=== PATIENT | female | born 1945 | race Caucasian/White ===

== ENCOUNTER 2017-02-27 12:33 | Emergency (ER) | payer MEDICARE, OTHER ==
[2017-02-27] MEDS ORDERED: Aspirin 81 MG Tab.Chew PO ONE (13:42)
[2017-02-27] MEDS ORDERED: Metoprolol Succinate 25 MG Tab.ER PO ONE (13:47)
--- NOTE | 2017-02-27 13:53 | EDM.PDOC ---
[id number] 4d FACE IS DROop Time Seen by Provider: 02/27/17 13:19 Source of Information: Reports: Patient History Limitations: Reports: No Limitations - History of Present Illness INITIAL COMMENTS - FREE TEXT/NARRATIVE: 72 yo female presents with 4 days of nausea vomiting, weakness and dizziness. 2 days ago was most severe, nausea with 1 episode of emesis. Nausea was worse when she would stand up. Today late morning her daughter noticed a left sided mouth droop but she is able to raise for smile. She is feeling better today, remains very fatigue. Balance has improved but not returned to normal. Pt does not know how long her blood pressure has been elevated. She has not seen a doctor for 30 plus years. She denies headache, or hearing her blood pressure in her ears. She denies fever, chills, nasal congestion, sore throat, stiff neck, diarrhea or constipation. denies Pain Score (Numeric/FACES): 0 - Related Data Allergies Allergy/AdvReac Type Severity Reaction Status Date / Time No Known Allergies Allergy Verified 02/27/17 13:06 Home Meds: Home Meds Timolol [Betimol 0.5% Ophth Soln] 1 drop TOP DAILY 02/27/17 [History] Past Medical History HEENT History: Reports: Glaucoma Social & Family History - Tobacco Use Smoking Status *Q: Never Smoker - Recreational Drug Use Recreational Drug Use: No ED ROS GENERAL - Review of Systems Review Of Systems: See Below Constitutional: Reports: Fatigue. Denies: Fever, Chills HEENT: Denies: Sinus Problem Respiratory: Denies: Shortness of Breath, Wheezing Cardiovascular: Denies: Chest Pain ED EXAM, GENERAL - Physical Exam Exam: See Below Exam Limited By: No Limitations General Appearance: Alert, WD/WN, No Apparent Distress Ears: Normal External Exam, Normal Canal, Hearing Grossly Normal, Normal TMs Nose: Normal Inspection, Normal Mucosa Throat/Mouth: Normal Inspection, Normal Lips, Normal Teeth, Normal Gums, Normal Oropharynx, Normal Voice, No Airway Compromise. No: Dysphagia Head: Atraumatic, Normocephalic, Other (left mouth droop, normal sensation bilateral) Neck: Normal Inspection, Supple, Non-Tender, Full Range of Motion. No: Lymphadenopathy (R), Lymphadenopathy (L) Respiratory/Chest: No Respiratory Distress, Lungs Clear, Normal Breath Sounds, No Accessory Muscle Use, Chest Non-Tender. No: Crackles, Rhonchi, Wheezing Cardiovascular: Regular Rate, Rhythm, No Murmur GI/Abdominal: Normal Bowel Sounds, Soft, Non-Tender Back Exam: Normal Inspection, Full Range of Motion. No: CVA Tenderness (R), CVA Tenderness (L) Neurological: Alert, Oriented, CN II-XII Intact, Normal Cognition, Normal Gait, Normal Reflexes, No Motor/Sensory Deficits. No: Disoriented, Memory Loss Remote Events, Memory Loss Recent Events Psychiatric: Normal Affect, Normal Mood Skin Exam: Warm, Dry, Intact Course - Vital Signs Last Recorded V/S: Last Vital Signs Temp 36.3 C 02/27/17 12:59 Pulse 63 02/27/17 14:24 Resp 16 02/27/17 14:25 BP 170/95 H 02/27/17 14:25 Pulse Ox 98 02/27/17 14:25 - Orders/Labs/Meds Orders: Active Orders 24 hr Category Date Time Status EKG Documentation Completion [RC] ASDIRECTED Care 02/27/17 13:44 Active Head wo Cont [CT] Stat Exams 02/27/17 13:41 Taken EKG 12 Lead [EK] Urgent Ther 02/27/17 13:42 Ordered Labs: Laboratory Tests 02/27/17 02/27/17 Range/Units 13:50 13:50 WBC 9.9 (4.5-11.0) K/uL RBC 5.06 (3.30-5.50) M/uL Hgb 14.7 (12.0-15.0) g/dL Hct 43.5 (36.0-48.0) % MCV 86 (80-98) fL MCH 29 (27-31) pg MCHC 34 (32-36) % Plt Count 276 (150-400) K/uL Neut % (Auto) 71 H (36-66) % Lymph % (Auto) 23 L (24-44) % [place] % (Auto) 6 (2-6) % Eos % (Auto) 0 L (2-4) % Baso % (Auto) 0 (0-1) % Sodium 142 (140-148) mmol/L Potassium 3.6 (3.6-5.2) mmol/L Chloride 106 (100-108) mmol/L Carbon Dioxide 29 (21-32) mmol/L Anion Gap 6.6 (5.0-14.0) mmol/L BUN 19 H (7-18) mg/dL Creatinine 0.9 (0.6-1.0) mg/dL Est Cr Clr Drug Dosing 53.67 mL/min Estimated GFR (MDRD) > 60 (>60) Glucose 115 H (74-106) mg/dL Calcium 9.2 (8.5-10.1) mg/dL Total Bilirubin 0.4 (0.2-1.0) mg/dL AST 12 L (15-37) U/L ALT 18 (12-78) U/L Alkaline Phosphatase 62 (46-116) U/L Troponin I < 0.017 (0.000-0.056) ng/mL Total Protein 6.9 (6.4-8.2) g/dL Albumin 3.6 (3.4-5.0) g/dL Globulin 3.3 (2.3-3.5) g/dL Albumin/Globulin Ratio 1.1 L (1.2-2.2) Meds: Medications Discontinued Medications Generic Name Dose Route Start Last Admin Trade Name Freq PRN Reason Stop Dose Admin Aspirin 81 mg 02/27/17 13:42 02/27/17 14:23 Aspirin PO 02/27/17 13:43 81 mg ONETIME ONE Administration Metoprolol Succinate 25 mg 02/27/17 13:47 02/27/17 14:24 Toprol Xl PO 02/27/17 13:48 25 mg ONETIME ONE Administration - Radiology Interpretation Free Text/Narrative:: head CT very small possible ischemic area of unknown age please see report for details CT Results Date: 02/27/17 - Re-Assessments/Exams Free Text/Narrative Re-Assessment/Exam: 02/27/17 19:29 pt visiting area from [place]. Onset of dizziness 3 days ago. Case discussed with Officer. Neuro exam intact. detailed discussion with daughter and pt about findings and blood pressure control and need to follow-up. Will DC her on aspirin 81 mg daily and Lisinopril 20 mg daily. She will follow-up on return home next Tuesday and return to ER if develop stroke symptoms Departure - Departure Time of Disposition: 15:36 Disposition: Home, Self-Care 01 Condition: Good Clinical Impression: Left-sided Whitten's palsy Hypertension Qualifiers: Hypertension type: essential hypertension Qualified Code(s): I10 - Essential ( primary) hypertension - Discharge Information Instructions: Hypertension Referrals: PCP,None [Primary Care Provider] - Forms: ED Department Discharge Additional Instructions: I have sent with you your lab work and Head CT you need to follow-up as soon as you return home aspirin 81 mg daily start Lisinopril 20 mg daily if you develop headache, slurred speech, unilateral weakness or numbness you need to be seen in emergency room - My Orders Last 24 Hours: My Active Orders 02/27/17 13:41 Head wo Cont [CT] Stat 02/27/17 13:42 EKG 12 Lead [EK] Urgent 02/27/17 13:44 EKG Documentation Completion [RC] ASDIRECTED - Assessment/Plan Last 24 Hours: My Active Orders 02/27/17 13:41 Head wo Cont [CT] Stat 02/27/17 13:42 EKG 12 Lead [EK] Urgent 02/27/17 13:44 EKG Documentation Completion [RC] ASDIRECTED
[2017-02-27 14:26] VITALS: BP 170/95
== END 2017-02-27 16:02 | disposition home or self-care (01) ==
LOC: JP.ED 12:33
DX: G51.0 Bell's palsy (principal); I10 Essential (primary) hypertension; H40.9 Unspecified glaucoma; Z79.899 Other long term (current) drug therapy
CPT/HCPCS: 36415; 70450; 80053; 84484; 85025; 93005; 99285; A9270; 93010; 99284

== ENCOUNTER 2017-03-01 12:52 | Emergency (ER) | payer MEDICARE, OTHER ==
[2017-03-01] MEDS ORDERED: Sodium Chloride 0.9% 10 ML Syringe FLUSH PRN (14:16)
[2017-03-01] MEDS ORDERED: Lactated Ringers 1,000 ML IV ONE (14:16)
--- NOTE | 2017-03-01 14:22 | EDM.PDOC ---
ED HPI GENERAL MEDICAL PROBLEM - General Chief Complaint: General Stated Complaint: NOT GETTING BETTER Time Seen by Provider: 03/01/17 14:04 Source of Information: Reports: Patient, Family, Old Records, RN Notes Reviewed History Limitations: Reports: No Limitations - History of Present Illness INITIAL COMMENTS - FREE TEXT/NARRATIVE: 72-year-old female presents emergency department today with difficulty swallowing she was recently seen in the emergency department earlier this weekend diagnosis of Whitten's palsy she had a follow-up at one of the stroke centers underwent MRI which was negative those records are pending, her facial droop on the left side has progressed she now has minimal movement of that cheek and mouth she also has difficulty closing her left eye one of the new symptoms is that she has difficulty eating and drinking. She is currently on combination prednisone, Valtrex, artificial tears. She states because of the difficulty eating and drinking she feels very dehydrated and weak - Related Data Allergies Allergy/AdvReac Type Severity Reaction Status Date / Time No Known Allergies Allergy Verified 02/27/17 13:06 Home Meds: Home Meds Timolol [Betimol 0.5% Ophth Soln] 1 drop TOP DAILY 02/27/17 [History] Aspirin 81 mg PO DAILY 03/01/17 [History] Dextran 70/Hypromellose [Artificial Tears] 1 drop EYELF ASDIRECTED PRN 03/01/17 [History] Lisinopril 20 mg PO DAILY 03/01/17 [History] Prednisone [IMW: predniSONE] 60 mg PO DAILY 03/01/17 [History] valACYclovir [Valtrex] 1,000 mg PO TID 03/01/17 [History] Past Medical History HEENT History: Reports: Glaucoma [employer] History: Reports: Social & Family History - Family History Family Medical History: Noncontributory - Tobacco Use Smoking Status *Q: Never Smoker - Caffeine Use Caffeine Use: Reports: Coffee - Recreational Drug Use Recreational Drug Use: No ED ROS GENERAL - Review of Systems Review Of Systems: See Below Constitutional: Denies: Fever, Chills Respiratory: Reports: No Symptoms Cardiovascular: Reports: No Symptoms GI/Abdominal: Reports: Difficulty Swallowing : Reports: No Symptoms Musculoskeletal: Reports: No Symptoms Skin: Reports: No Symptoms Neurological: Reports: Other (Facial droop) ED EXAM, GENERAL - Physical Exam Exam: See Below Free Text/Narrative:: Power is 5 x 5 in upper and lower extremities there is no dysdiadochokinesis she has no difficulty with rapid alternating movements can do finger to nose without past pointing. Examination of the face she has difficulty on the left side of face with the corner of the mouth remaining fixed while the right side raises the forehead is spared she has difficulty closing the left eye Exam Limited By: No Limitations General Appearance: Alert, WD/WN, No Apparent Distress Respiratory/Chest: No Respiratory Distress Course - Vital Signs Last Recorded V/S: Last Vital Signs Temp 99.0 F 03/01/17 13:06 Pulse 71 03/01/17 15:35 Resp 20 03/01/17 15:35 BP 181/98 H 03/01/17 15:35 Pulse Ox 96 03/01/17 15:35 - Orders/Labs/Meds Orders: Active Orders 24 hr Category Date Time Status Peripheral IV Care [RC] . DIRECTED Care 03/01/17 14:17 Active Sodium Chloride 0.9% [Saline Flush] Med 03/01/17 14:16 Active 10 ml FLUSH ASDIRECTED PRN Peripheral IV Insertion Adult [OM.PC] Urgent Oth 03/01/17 14:17 Ordered Medication Orders Sodium Chloride (Saline Flush) 10 ml FLUSH ASDIRECTED PRN PRN Reason: Keep Vein Open Last Admin: 03/01/17 14:32 Dose: 10 ml Meds: Medications Generic Name Dose Route Start Last Admin Trade Name Freq PRN Reason Stop Dose Admin Sodium Chloride 10 ml 03/01/17 14:16 03/01/17 14:32 Saline Flush FLUSH 10 ml ASDIRECTED PRN Administration Keep Vein Open Discontinued Medications Generic Name Dose Route Start Last Admin Trade Name Freq PRN Reason Stop Dose Admin Lactated Ringer's 1,000 mls @ 999 mls/hr 03/01/17 14:16 03/01/17 14:34 Ringers, Lactated IV 03/01/17 15:16 999 mls/hr BOLUS ONE Administration Departure - Departure Time of Disposition: 16:04 Disposition: Home, Self-Care 01 Condition: Good Clinical Impression: Left-sided Whitten's palsy - Discharge Information Forms: ED Department Discharge Additional Instructions: Take prednisone on a tapering dose 60 mg once a day 6 days 40 mg once day 3 days and 20 mg once a day 3 days then stop, take the Valtrex 1 g 3 times a day for total of 10 days, continue using artificial tears while awake and eye patch at night, recommend trying the vitamin B 2.5 mg sublingual twice a day for one month. If blood pressure remains high in the 170 systolic range recommend starting amlodipine 5 mg once a day please follow-up with your primary care provider upon return home - My Orders Last 24 Hours: My Active Orders 03/01/17 14:16 Sodium Chloride 0.9% [Saline Flush] 10 ml FLUSH ASDIRECTED PRN 03/01/17 14:17 Peripheral IV Care [RC] . DIRECTED Peripheral IV Insertion Adult [OM.PC] Urgent - Assessment/Plan Last 24 Hours: My Active Orders 03/01/17 14:16 Sodium Chloride 0.9% [Saline Flush] 10 ml FLUSH ASDIRECTED PRN 03/01/17 14:17 Peripheral IV Care [RC] . DIRECTED Peripheral IV Insertion Adult [OM.PC] Urgent Plan: Assessment Acuity = acute Site and laterality = Whitten's palsy complicated patient with known history hypertension and chronic small vessel ischemic disease Etiology = suspicious for viral etiology Manifestations = facial droop, dry left eye Location of injury = home Lab values = none Plan I did review CT scan and MRI results from prior emergency room visits I also consult with neurology [facility], who agreed probable Whitten's palsy recommended the following treatment tapering dose of prednisone 60 mg once day 6 days followed by 40 mg once a day 3 days followed by 20 mg once a day 3 days, Valtrex 1 tablet by mouth 3 times a day 10 days 1 g each tablet, artificial tears eye patch at night, she is to follow-up with her primary care provider upon return home Patient was in agreement with the plan all questions were answered, they were instructed to return to the emergency department or call for worsening symptoms. This note was dictated using [employer] voice recognition software please call with any questions.
[2017-03-01 15:36] VITALS: BP 181/98
== END 2017-03-01 17:05 | disposition home or self-care (01) ==
LOC: JP.ED 12:52
DX: G51.0 Bell's palsy (principal); Z79.82 Long term (current) use of aspirin; Z79.899 Other long term (current) drug therapy
CPT/HCPCS: 96360; 99284; J7050; J7120; 99283